=== PATIENT | female | born 1965 | race Two or more races ===

== ENCOUNTER 2025-01-30 02:54 | Emergency (ER) | payer OTHER ==
[~2025-01-30] VITALS: Ht 165.1 cm; Wt 83.0 kg
[~2025-01-30 02:54] MED LIST: SIMVASTATIN10 MG
[2025-01-30] MEDS ORDERED: ATIVAN0.5 M1 (03:15)
[2025-01-30] MEDS ORDERED: CRESTOR40 MG PO (03:15)
[2025-01-30] MEDS ORDERED: METHYLPREDNISOLONE SOD SUCC 125 MG VIAL IV STA (04:22)
[2025-01-30] MEDS ORDERED: KETOROLAC TROMETHAMINE 30 MG VIAL ONE (04:24)
[2025-01-30] MEDS ORDERED: KETOROLAC TROMETHAMINE 30 MG VIAL IV STA (04:24)
[2025-01-30] MEDS ORDERED: METHYLPREDNISOLONE SOD SUCC 125 MG VIAL ONE (04:25)
[2025-01-30] MEDS ORDERED: LEVALBUTEROL HCL 0.63 MG/3 ML SOLUTION IH SCH (04:30)
[2025-01-30] MEDS ORDERED: LEVALBUTEROL HCL 0.63 MG/3 ML SOLUTION IH ONE (04:30)
[2025-01-30 04:55] LABS: BASO % 0.5 % (0.1-1.2); EOS # 0.01 (0.04-0.54); EOS % 0.1 % (0.7-7.0); LYMPH # 0.38 (1.18-3.74); LYMPH % 4.3 % (19.3-53.1); MEAN PLATELET VOLUME 10.20 fl (9.4-12.4); MONO # 1.12 (0.24-0.82); NEUT # 7.22 (1.56-6.13); NEUT % 81.9 % (34.0-71.1); RED CELL DISTRIBUTION WIDTH 12.7 % (11.6-14.4)
[2025-01-30 04:56] LABS: MONO % 12.7 % (4.7-12.5)
[2025-01-30 05:10] LABS: INR 0.96
[2025-01-30 05:15] LABS: ALT/SGPT 70.0 U/L (12-78); AST/SGOT 70.0 U/L (15-37); BILIRUBIN TOTAL 0.52 mg/dL (0.3-1.2); BUN CREA RATIO 15.0 (7.0-25.0); CREATININE SERUM 0.81 mg/dL (0.55-1.02); GFR 71.88; GLOBULINA 3.3 G/DL (2.4-3.5); GLUCOSE FASTING 116.0 mg/dL (65-100); OSMOLALITY SERUM 280.0 MOSM/KG (275-295)
[2025-01-30 05:53] LABS: COVID-19 AG NEGATIVE (NEGATIVE)
[2025-01-30 07:24] LABS: URINE APPEARANCE Clear; URINE BILIRRUBIN Negative (NEGATIVE); URINE BLOOD Negative; URINE COLOR Yellow; URINE GLUCOSE Negative (NEGATIVE); URINE KETONE Negative (NEGATIVE); URINE LEUKOCYTE Negative; URINE NITRATE Negative; URINE PROTEIN Negative (NEGATIVE); URINE UROBILINOGEN 0.2 E.U./dl
[2025-01-30 07:29] LABS: URINE BACTERIA 17.9 uL (0.0-1933); URINE EPITHELIAL CELLS 5.6 uL (0.0-38.8); URINE RBC 10.1 uL (0.0-20.8); URINE WBC 7.3 uL (0.0-23.2)
[2025-01-30 07:32] LABS: URINE CAST 0.14 uL (0.0-1.40)
[2025-01-30] MEDS ORDERED: ORPHENADRINE CITRATE 30 MG/ML AMPUL IV STA (08:22)
[2025-01-30] MEDS ORDERED: ORPHENADRINE CITRATE 30 MG/ML AMPUL ONE (08:38)
[2025-01-30] MEDS ORDERED: BUDESONIDE0.5 MG/2 M IH (11:42)
[2025-01-30] MEDS ORDERED: MEDROLPACK PO (11:42)
[2025-01-30] MEDS ORDERED: ALBUTEROL2.5 MG/3 M IH (11:42)
[2025-01-30] MEDS ORDERED: ZITHROMAX500 MG PO (11:42)
[2025-01-30] MEDS ORDERED: NORFLEX100MG PO (11:42)
== END 2025-01-30 13:08 | disposition home or self-care (01) ==
LOC: ER 02:54
PROVIDERS: General Practice
DX: J20.9 Acute bronchitis, unspecified (principal); R06.02 Shortness of breath; R07.89 Other chest pain; Z91.013 Allergy to seafood; M94.0 Chondrocostal junction syndrome [Tietze]; Z20.822 Contact with and (suspected) exposure to COVID-19